=== PATIENT | female | born 1970 | race Caucasian/White ===

== ENCOUNTER → 2018-08-20 | Day surgery (SDC) | payer BC ==
[~2018-08-20] MED LIST: Dexamethasone 4 MG/ML 5 ML MDV ONE; HYDROmorphone 0.5 MG/0.5 ML Syringe IVPUSH PRN; Ketorolac 30 MG/ML SDV ONE; Lactated Ringers 1,000 ML IV SCH; Lactated Ringers 1,000 ML ONE; Lidocaine 1% 4 ML ONE; Lidocaine 1%/Sod Bicarbonate in NS 8.4% 1 ML Syringe IDERM PRN; Midazolam 1 MG/ML 2 ML SDV ONE; Ondansetron 4 MG/2 ML SDV IVPUSH PRN; Ondansetron 4 MG/2 ML SDV ONE; Propofol 200 MG/20 ML SDV ONE; Scopolamine 1.5 MG Transdermal Patch TOP SCH; Sodium Chloride 0.9% 10 ML Syringe FLUSH PRN; ceFAZolin 1 GM Vial ONE; fentaNYL 100 MCG/2 ML SDV IVPUSH PRN; fentaNYL 250 MCG/5 ML SDV ONE
--- NOTE | 2018-08-20 10:31 | PCM.PREANE ---
Preanesthetic Assessment - Procedure Proposed Procedure: hysteroscopy, d and c , endometrial ablation - Anesthesia/Transfusion/Family Hx Anesthesia History: Prior Anesthesia Without Reaction Type of Anesthesia Reaction: Excessive Nausea/Vomiting Family History of Anesthesia Reaction: No Transfusion History: No Prior Transfusion(s) - Review of Systems General: No Symptoms Pulmonary: No Symptoms Cardiovascular: No Symptoms Gastrointestinal: No Symptoms Neurological: No Symptoms Other: Reports: None, Thyroid Problems (only lobe- removed goiter) - Physical Assessment NPO Status Date: 08/19/18 NPO Status Time: 19:00 Pulse: 76 O2 Sat by Pulse Oximetry: 98 Respiratory Rate: 16 Blood Pressure: 138/78 Temperature: 98.8 F Height: 5 ft 2 in Weight: 69 kg ASA Class: 1 Mental Status: Alert & Oriented x3 Airway Class: Mallampati = 1 Dentition: Reports: Normal Dentition Thyro-Mental Finger Breadths: 3 Mouth Opening Finger Breadths: 3 ROM/Head Extension: Full Lungs: Clear to Auscultation, Normal Respiratory Effort Cardiovascular: Regular Rate, Regular Rhythm - Allergies Allergies/Adverse Reactions: Allergies Allergy/AdvReac Type Severity Reaction Status Date / Time No Known Allergies Allergy Verified 08/19/18 13:49 - Blood Blood Available: No - Acknowledgements Anesthesia Type Planned: General Anesthesia Pt an Appropriate Candidate for the Planned Anesthesia: Yes Alternatives and Risks of Anesthesia Discussed w Pt/Guardian: Yes Pt/Guardian Understands and Agrees with Anesthesia Plan: Yes PreAnesthesia Questionnaire Cardiovascular History: Reports: None Respiratory History: Reports: None Gastrointestinal History: Reports: None [employer] History: Reports: , Other (See Below) Other OB/BYN History: dysmenorrhea, menorrhagia Musculoskeletal History: Reports: None Neurological History: Reports: None Psychiatric History: Reports: None Endocrine/Metabolic History: Reports: None Hematologic History: Reports: None Immunologic History: Reports: None Oncologic (Cancer) History: Reports: None Dermatologic History: Reports: None - Past Surgical History Head Surgeries/Procedures: Reports: None HEENT Surgical History: Reports: Tonsillectomy Cardiovascular Surgical History: Reports: None Respiratory Surgical History: Reports: None GI Surgical History: Reports: None Female Surgical History: Reports: Section, D&C Male Surgical History: Reports: None Endocrine Surgical History: Reports: Thyroidectomy Neurological Surgical History: Reports: None Musculoskeletal Surgical History: Reports: None Oncologic Surgical History: Reports: None Dermatological Surgical History: Reports: None - SUBSTANCE USE Smoking Status *Q: Never Smoker Tobacco Use Within Last Twelve Months: No Second Hand Smoke Exposure: No Days Per Week of Alcohol Use: 1 (rare) Recreational Drug Use History: No - HOME MEDS Home Medications: Home Meds LORazepam 0.5 mg PO DAILY PRN 08/19/18 [History] - CURRENT (IN HOUSE) MEDS Current Meds: Current Medications Lactated Ringer's (Ringers, Lactated) 1,000 mls @ 125 mls/hr IV ASDIRECTED TED Stop: 08/20/18 23:00 Lidocaine/Sodium Bicarbonate (Buffered Lidocaine 1% In Ns 8.4%) 0.25 ml IDERM ONETIME PRN PRN Reason: Prior to IV Start Stop: 08/20/18 18:00 Scopolamine (Transderm-Scop) 1.5 mg TOP ONETIME TED Stop: 08/20/18 12:00 Last Admin: 08/20/18 10:12 Dose: 1.5 mg Sodium Chloride (Saline Flush) 10 ml FLUSH ASDIRECTED PRN PRN Reason: Keep Vein Open Stop: 08/20/18 18:00
--- NOTE | 2018-08-20 11:41 | PCM.POSTAN ---
POST ANESTHESIA ASSESSMENT - MENTAL STATUS Mental Status: Alert, Oriented - VITAL SIGNS Pulse Rate: 73 SaO2: 98 Resp Rate: 13 Blood Pressure: 103/59 Temperature: 98.6 F - RESPIRATORY Respiratory Status: Respiratory Rate WNL, Airway Patent, O2 Saturation Stable, Supplemental Oxygen - CARDIOVASCULAR CV Status: Pulse Rate WNL, Blood Pressure Stable - GASTROINTESTINAL GI Status: No Symptoms - PAIN Pain Score: 0 - POST OP HYDRATION Hydration Status: Adequate & Stable
--- NOTE | 2018-08-20 11:57 | PCM.OPNOTE ---
- General Post-Op/Procedure Note Date of Surgery/Procedure: 08/20/18 Operative Procedure(s): Hysteroscopy, D&C, NovaSure endometrial ablation Findings: Endometrial cavity is within normal limits. No evidence of polyps. Pre Op Diagnosis: Menorrhagia Post-Op Diagnosis: Same Anesthesia Technique: General LMA Primary Surgeon: Luiz Avalos Fluid Replacement, Intraop: 800 EBL in mLs: 5 Complications: None Condition: Good Free Text/Narrative:: Surgery duration: 14 minutes Procedure: The patient is taken to the operative placed in a supine position on the operating table. She received 2 g of Ancef preoperatively for infection prophylaxis and had sequential compression stockings in place for DVT prophylaxis. Patient was given general anesthesia and an LMA was placed for ventilation. She is placed in a dorsal lithotomy position and prepped and draped in usual fashion. An exam under anesthesia was performed. Findings as described above. A weighted speculum was placed in the vagina. Cervix is visualized. It was grasped anteriorly with a single-tooth tenaculum. Uterus was then sounded to a depth of 10 cm. cervix was felt to be 3-1/2 cm. Uterus was anterior, mid position. The cervix was dilated to entrance of a 5 mm 12 rigid hysteroscope. This was placed without problem and normal saline was used as a distending medium. The endometrial cavity was visualized. Findings as described above. D&C was performed to sample the lining of the uterus. Moderate amount tissue was obtained. Minimal bleeding was encountered. NovaSure endometrial ablation was then performed. It should be noted an adequate consent was appropriately signed by the patient prior to the procedure. The cervix was dilated to allow placement of the NovaSure endometrial apparatus. Uterus had sounded to 10 cm -3.5 cm for cervix for uterine/endometrial cavity length of 7-1/2 cm. The NovaSure device was set to 6.5 now centimeters as this was maximal setting. Power was 164. The image cavities foundry 4.6 cm in width. Uterine cavity integrity check was then performed and the endometrial cavity was then ablated. The ablation took approximately 1.5 minutes. The array was collapsed and the apparatus was removed. Hysteroscope was then placed back into the endometrial cavity. Blood was flushed out and the findings were consistent with a cauterizedendometrial cavity. At this point the scope was removed. The vagina was cleared of old blood , the cervix was released and the weighted speculum was removed. Patient was returned to supine position and awakened from general anesthesia. She tolerated the procedure well and operating room in good condition.
--- NOTE | 2018-08-20 12:13 | PCM48HPAN ---
Post Anesthesia Note - EVALUATION WITHIN 48HRS OF ANESTHETIC Vital Signs in Normal Range: Yes Patient Participated in Evaluation: Yes Respiratory Function Stable: Yes Airway Patent: Yes Cardiovascular Function Stable: Yes Hydration Status Stable: Yes Pain Control Satisfactory: Yes Nausea and Vomiting Control Satisfactory: Yes Mental Status Recovered: Yes (no complaints) Pulse Rate: 73 Resp Rate: 13 Temperature: 98.6 F Blood Pressure: 103/59
== END | disposition home or self-care (01) ==
LOC: JD.SDS 10:10
PROVIDERS: ATTEND Obstetrics & Gynecology
DX: N92.0 Excessive and frequent menstruation with regular cycle (principal); N94.6 Dysmenorrhea, unspecified; N84.0 Polyp of corpus uteri
CPT/HCPCS: 58563; A9270; J0690; J1100; J1885; J2250; J2405; J2704; J3010; J7120; 00952; J2001